=== PATIENT | male | born 1950 | race Caucasian/White ===

== ENCOUNTER 2018-05-04 14:46 | Emergency (ER) | payer MEDICARE ==
[~2018-05-04] VITALS: Ht 182.9 cm; Wt 71.7 kg
--- NOTE | 2018-05-04 15:34 | NUR ---
PT IS IN ROOM #2A. DR BARTLETT EVALUATED THE PT.
--- NOTE | 2018-05-04 15:54 | NUR ---
Patient discharged to home in stable conditon. Written and verbal after care instructions given. Patient verbalizes understanding of instructions.
== END 2018-05-04 15:55 | disposition home or self-care (01) ==
LOC: ER 14:51
DX: M79.641 Pain in right hand (principal); F17.200 Nicotine dependence, unspecified, uncomplicated
CPT/HCPCS: A4663